=== PATIENT | female | born 1935 | race Two or more races ===

== ENCOUNTER 2016-10-25 02:10 | Observation (INO) | payer OTHER ==
--- NOTE | 2016-10-25 02:44 | PDOC ---
History of Present Illness - General History Source: Patient, Family, Spouse Exam Limitations: No Limitations - History of Present Illness Initial Comments: 10/25/16 04:16 The patient is a 81-year-old female, with a significant past medical history of schizophrenia, hypothyroidism, and borderline diabetes who presents to the emergency department complaining of syncope(X2) and lightheadedness that began approximately 5 hours ago. The patient reports she was sleeping when she began to feel abdominal discomfort, and got up to use the bathroom. Upon getting up she began to feel lightheaded and had difficulty walking. The patient reports a mechanical fall secondary to lightheaded symptoms. She states that her helped her get up, but she fell again. As per spouse, the patient did not have any head trauma or LOC.As per daughter, the patient has been taking a sleeping pill for the past 6 months, but today it is unclear whether or not she double dosed. The patient denies fever, chills, cough, or headache. She denies nausea, vomiting, diarrhea, and constipation. She denies dysuria frequency, urgency, and hematuria. Allergies: Penicillin Past Surgical History: None reported. Social History: Non-smoker. Denies alcohol or drug use. 10/25/16 04:34 <Geovanna Veras - Last Filed: 10/25/16 04:34> <Marita Gonzales - Last Filed: 10/25/16 07:01> - General Chief Complaint: Lightheaded Stated Complaint: SYNCOPE Time Seen by Provider: 10/25/16 02:31 Past History <Geovanna Veras - Last Filed: 10/25/16 04:34> - Past Medical History Diabetes: Yes (borderline diabetes) Psychiatric Problems: Yes (schizophrenia) Thyroid Disease: Yes (hypo) - Psycho/Social/Smoking Cessation Hx Suicidal Ideation: No Smoking History: Never smoked <Marita Gonzales - Last Filed: 10/25/16 07:01> - Past Medical History Allergies/Adverse Reactions: Allergies Allergy/AdvReac Type Severity Reaction Status Date / Time Penicillins Allergy Verified 10/25/16 02:17 Home Medications: Ambulatory Orders Atorvastatin Ca [Lipitor] 0 mg PO HS 10/25/16 Gabapentin 600 mg PO ASDIR 10/25/16 Levothyroxine Sodium [Levo-T] 0 mcg PO DAILY 10/25/16 Quetiapine Fumarate [Seroquel -] 0 mg PO HS 10/25/16 Review of Systems - Review of Systems Able to Perform ROS?: Yes Comments:: 10/25/16 04:16 GENERAL/CONSTITUTIONAL: No fever or chills. No weakness. HEAD, EYES, EARS, NOSE AND THROAT: No change in vision. No ear pain or discharge. No sore throat. CARDIOVASCULAR: No chest pain or shortness of breath. RESPIRATORY: No cough, wheezing, or hemoptysis. GASTROINTESTINAL: No nausea, vomiting, diarrhea or constipation. GENITOURINARY: No dysuria, frequency, or change in urination. MUSCULOSKELETAL: No joint or muscle swelling or pain. No neck or back pain. SKIN: No rash NEUROLOGIC: +Lightheadedness. No headache, vertigo, or change in strength/ sensation. ENDOCRINE: No increased thirst. No abnormal weight change. HEMATOLOGIC/LYMPHATIC: No anemia, easy bleeding, or history of blood clots. ALLERGIC/IMMUNOLOGIC: No hives or skin allergy. <Geovanna Veras - Last Filed: 10/25/16 04:34> *Physical Exam - Vital Signs Last Vital Signs Temp Pulse Resp BP Pulse Ox 78 18 150/65 98 10/25/16 02:20 10/25/16 02:20 10/25/16 02:20 10/25/16 02:20 - Physical Exam Comments: 10/25/16 04:17 GENERAL: The patient is awake, alert, and fully oriented, in no acute distress. HEAD: Normal with no signs of trauma. EYES: Pupils equal, round and reactive to light, extraoccular movements intact, sclera anticteric, conjunctiva clear with no pallor. ENT: Ears normal, nares patent, oropharynx clear without exudates. Moist mucous membranes. NECK: Normal range of motion, supple without lymphadenopathy, JVD, or masses. LUNGS: Breath sounds equal, clear to auscultation bilaterally. No wheeze/ crackles. HEART: Regular rate and rhythm, normal S1 and S2 without murmur or rub. ABDOMEN: Soft/nontender/nondistended. BS wnl. No guarding or rebound. No palpable masses. No hepatosplenomegaly. EXTREMITIES: Normal range of motion, no edema. No clubbing or cyanosis. No cords , erythema, or tenderness. NEUROLOGICAL: Cranial nerves II through XII grossly intact. No deficits to light touch and temperature in face, upper extremities and lower extremities. No motor deficits in the in face, upper extremities and lower extremities. Normoreflexic in the upper and lower extremities. Normal speech. Toes are down- going bilaterally. Gait is normal without ataxia. +Finger to nose test is off. Rhomberg sign is normal. Heel to toe test was normal bilaterally. PSYCH: +Schizophrenia. Normal mood, normal affect. SKIN: Warm, Dry, normal turgor, no rashes or lesions noted. <Geovanna Veras - Last Filed: 10/25/16 04:34> - Vital Signs Last Vital Signs Temp Pulse Resp BP Pulse Ox 78 18 150/65 98 10/25/16 02:20 10/25/16 02:20 10/25/16 02:20 10/25/16 02:20 <Marita Gonzales - Last Filed: 10/25/16 07:01> ED Treatment Course - LABORATORY CBC & Chemistry Diagram: 10/25/16 02:49 10/25/16 02:49 - ADDITIONAL ORDERS Additional order review: Laboratory Results 10/25/16 10/25/16 10/25/16 03:28 02:49 02:49 INR 1.17 H Sodium 143 Potassium 3.6 Chloride 104 Carbon Dioxide 28 Anion Gap 11 BUN 12 Creatinine 1.1 H Creat Clearance w eGFR 47.91 Random Glucose 171 H Calcium 9.3 Total Bilirubin 0.7 AST 24 ALT 24 Alkaline Phosphatase 125 H Creatine Kinase 254 H CK-MB (CK-2) 1.661 Troponin I < 0.02 Total Protein 6.7 Albumin 3.8 Triglycerides 89 Cholesterol 160 Total LDL Cholesterol 86 HDL Cholesterol 62 H Urine Color Ltyellow Urine Appearance Clear Urine pH 6.0 Ur Specific [place] 1.014 Urine Protein 1+ H Urine Glucose (UA) Negative Urine Ketones Negative Urine Blood Negative Urine Nitrite Negative Urine Bilirubin Negative Urine Urobilinogen Negative Ur Leukocyte Esterase 1+ H 10/25/16 02:49 RBC 4.01 MCV 90.4 MCHC 32.5 RDW 13.1 MPV 9.1 Neutrophils % 57.7 Lymphocytes % 34.4 Monocytes % 6.5 Eosinophils % 1.1 Basophils % 0.3 <Geovanna Veras - Last Filed: 10/25/16 04:34> - LABORATORY CBC & Chemistry Diagram: 10/25/16 02:49 10/25/16 02:49 <Marita Gonzales - Last Filed: 10/25/16 07:01> Medical Decision Making - Medical Decision Making 10/25/16 04:10 Patient Name: Yamilka Nance This is a preliminary report by imaging superintendent distribution Exam: Noncntrast CT head Images: 74 Clinical indication: Rule out cerebellar stroke. Findings: Multiple axial images were obtained of the brain without contrast. There is no mass-effect, midline shift or hemorrhage. There is no intra-axial or extra-axial fluid collection. Mineralization is noted in both basal ganglia. Atrophic involutional changes are noted and are mild for the patient's stated age. No cerebellar infarct identified. The visualized portions of the paranasal sinuses are clear. The middle ear cavities and mastoids are clear. Impression: No mass effect or intracranial hemorrhage. No cerebellar infarct identified. THIS DOCUMENT HAS BEEN ELECTRONICALLY SIGNED 10/25/16 06:57 Pt had 2 syncopal episode in the bathroom this early AM. She went to sleep with her around 9:30 and then woke up around 2am to go to the bathroom, but she was unsteady on her feet and she fell in the bathroom. He helped her up and she fell a second time. Pt comes to the ER iwth , daughter and grandchild. They tell me that she is schizophrenic and at baseline doesnt know the date and cannot answer some questions coherently. The tell me her PMD Dr. Garcia put her on sleeping pills 6 months ago and they think that she may have doubled up on her meds today by accident. Pt has a normal exam in the ER, except that her finger to nose exam is unsteady. SHe is otherwise able to ambulate to the bathroom in the ER and she has equal and good strength throughout. She is afebrile. The leukocytes in her urine may reflect that she had a BM on herself and the clean catch specimen is likely contaminated. Pt's head CT appears normal. Labs are normal and she will be admitted to the hospitalist for syncope and she will require a neuro consult. <Marita Gonzales - Last Filed: 10/25/16 07:01> *DC/Admit/Observation/Transfer - Attestations Scribe Attestion: 10/25/16 04:22 Documentation prepared by Geovanna Veras, acting as medical coder for Marita Gonzales MD. <Geovanna Veras - Last Filed: 10/25/16 04:34> - Discharge Dispostion Admit: Yes <Marita Gonzales - Last Filed: 10/25/16 07:01> Diagnosis at time of Disposition: Syncope and collapse - Referrals
[2016-10-25 02:45] VITALS: BMI 23.5
--- NOTE | 2016-10-25 02:45 | PDOC ---
NIH Stroke Scale - Last Known Well Date/Time & Onset Date Last Known Well: 10/24/16 Time Last Known Well: 21:30 - Initial Evaluation Level of consciousness: Alert Ask patient the month and their age: Both incorrect Ask patient to open & close eyes; make fist and let go: Obeys both correctly Best gaze (horizontal eye movement): Normal Visual field testing: No visual field loss Facial paresis (Show teeth/raise eyebrows/close eyes tight): Normal symmetrical movement Motor Function: Left Arm: Normal Motor Function: Right Arm: Normal (extends arm 90 (or 45) degrees for 10 seconds without drift Motor Function: Left Leg: Normal (extends leg 30 degrees for 5 seconds without drift) Motor Function: Right Leg: Normal (extends leg 30 degrees for 5 seconds without drift) Limb Ataxia: Present in two limbs Sensory(Use pinprick test arms,legs,trunk,face/side to side): Normal Best language (Describe picture, name items, read sentences): No Aphasia Dysarthria (read several words): Normal articulation Extinction and Inattention: No abnormality - Total Score NIH Stroke Scale Score: 4
[2016-10-25 03:00] LABS: BASOPHIL 0.3 % (0-2.0); EOSINOPHIL 1.1 % (0-4.5); MCH 29.4 pg (25.7-33.7); MCHC 32.5 g/dl (32.0-36.0); MEAN CELL VOLUME 90.4 fl (80-96); MEAN PLT VOLUME 9.1 fl (7.5-11.1); NEUTROPHILS 57.7 % (42.8-82.8); PLATELET COUNT 178 K/MM3 (134-434); RDW 13.1 % (11.6-15.6); WHITE BLOOD COUNT 6.6 K/mm3 (4.0-10.0)
[2016-10-25 03:18] LABS: INR 1.17 (0.82-1.09); PROTHROMBIN TIME (PATIENT) 12.9 SEC (9.98-11.88)
[2016-10-25 03:26] LABS: ALBUMIN 3.8 g/dl (3.4-5.0); ANION GAP 11 (8-16); BILIRUBIN,TOTAL 0.7 mg/dL (0.2-1.0); CALCIUM 9.3 mg/dL (8.5-10.1); CHOLESTEROL 160 mg/dL (50-200); CO2 28 mmol/L (21-32); CREATININE 1.1 mg/dL (0.55-1.02); GLUCOSE,RANDOM 171 mg/dL (74-106); SGOT/AST 24 U/L (15-37); SGPT/ALT 24 U/L (12-78); TOT PROT 6.7 g/dl (6.4-8.2)
[2016-10-25 03:29] LABS: ALK PHOS 125 U/L (45-117); TROPONIN I < 0.02 ng/ml (0.00-0.05)
[2016-10-25 03:35] LABS: URINE APPEARANCE CLEAR; URINE BILIRUBIN NEGATIVE (NEGATIVE); URINE BLOOD NEGATIVE (NEGATIVE); URINE COLOR LTYELLOW; URINE GLUCOSE (UA) NEGATIVE (NEGATIVE); URINE KETONE NEGATIVE (NEGATIVE); URINE LEUK ESTERASE 1+ (NEGATIVE); URINE NITRITE NEGATIVE (NEGATIVE); URINE PROTEIN 1+ (NEGATIVE); URINE UROBILINOGEN NEGATIVE E.U./dl (0.2-1.0)
[2016-10-25 03:42] LABS: URINE BACTERIA RARE /hpf (NONE SEEN); URINE MUCUS RARE; URINE RBC 5 /hpf (0-3); URINE WBC 10 /hpf (3-5)
[2016-10-25 03:46] LABS: LDL CHOLESTEROL (ONLY SJRH) 86 mg/dL (5-100)
--- NOTE | 2016-10-25 05:01 | HP ---
CHIEF COMPLAINT: Lightheadedness, Syncope PCP: HISTORY OF PRESENT ILLNESS: This is a 81 year old woman with a past medical history of: Schizophrenia, Hypothyroidism, Borderline DM. Who presents to the emergency department from home with lightheadedness, syncope x 0124. Patient's daughter reports her mom was found on the bathroom floor wedged between the tub and garbage bin. Per daughter patient was awake with slurred speech. Patient reports feeling lightheaded and weak. Patient reports being constipated for several days taking a laxative and her sleeping med around 8-9pm. She states" when I got up to go to the bathroom my legs felt weak." Patient denies headache, blurred vision or numbness, except for chronic numbness to her left foot. Patient denies fever, chills, SOB, CP, N/V/D, melena, hematuria, dysuria. ER course was notable for: (1) CT Brain- negative ICH, mass or lesion (2) EKG SB with T wave abnormality (3) Glucose 171 Recent Travel: None PAST MEDICAL HISTORY: See HPI PAST SURGICAL HISTORY: See HPI Social History: Smoking: None Alcohol: None Drugs: None Family History: Allergies Penicillins Allergy (Verified 10/25/16 02:17) HOME MEDICATIONS: Medication Instructions Recorded Atorvastatin Ca [Lipitor] 0 mg PO HS 10/25/16 Gabapentin 600 mg PO ASDIR 10/25/16 Levothyroxine Sodium [Levo-T] 0 mcg PO DAILY 10/25/16 Quetiapine Fumarate [Seroquel -] 0 mg PO HS 10/25/16 REVIEW OF SYSTEMS CONSTITUTIONAL: generalized weakness Absent: fever, chills, diaphoresis, malaise, loss of appetite, weight change HEENT: Absent: rhinorrhea, nasal congestion, throat pain, throat swelling, difficulty swallowing, mouth swelling, ear pain, eye pain, visual changes CARDIOVASCULAR: syncope, lightheadedness Absent: chest pain, syncope, palpitations, irregular heart rate, peripheral edema RESPIRATORY: Absent: cough, shortness of breath, dyspnea with exertion, orthopnea, wheezing, stridor, hemoptysis GASTROINTESTINAL: Absent: abdominal pain, abdominal distension, nausea, vomiting, diarrhea, constipation, melena, hematochezia GENITOURINARY: Absent: dysuria, frequency, urgency, hesitancy, hematuria, flank pain, genital pain MUSCULOSKELETAL: Absent: myalgia, arthralgia, joint swelling, back pain, neck pain SKIN: Absent: rash, itching, pallor HEMATOLOGIC/IMMUNOLOGIC: Absent: easy bleeding, easy bruising, lymphadenopathy, frequent infections ENDOCRINE: Absent: unexplained weight gain, unexplained weight loss, heat intolerance, cold intolerance NEUROLOGIC: dizziness, unsteady gait Absent: headache, focal weakness or paresthesias, dizziness, unsteady gait, seizure, mental status changes, bladder or bowel incontinence PSYCHIATRIC: Absent: anxiety, depression, suicidal or homicidal ideation, hallucinations. PHYSICAL EXAMINATION Vital Signs - 24 hr 10/25/16 02:20 Pulse Rate 78 Respiratory 18 Rate Blood Pressure 150/65 O2 Sat by Pulse 98 Oximetry (%) GENERAL: Awake, alert, and fully oriented, in no acute distress. HEAD: Normal with no signs of trauma. EYES: Pupils equal, round and reactive to light, extraocular movements intact, sclera anicteric, conjunctiva clear. No lid lag. EARS, NOSE, THROAT: Ears normal, nares patent, oropharynx clear without exudates. Dry mucous membranes. NECK: Normal range of motion, supple without lymphadenopathy, JVD, or masses. LUNGS: Breath sounds equal, clear to auscultation bilaterally. No wheezes, and no crackles. No accessory muscle use. HEART: Regular rate and rhythm, normal S1 and S2 without murmur, rub or gallop. ABDOMEN: Soft, nontender, not distended, normoactive bowel sounds, no guarding, no rebound, no masses. No hepatomegaly or splenomegaly. MUSCULOSKELETAL: Normal range of motion at all joints. No bony deformities or tenderness. No CVA tenderness. UPPER EXTREMITIES: 2+ pulses, warm, well-perfused. No cyanosis. No clubbing. Cap refill <2 seconds. No peripheral edema. LOWER EXTREMITIES: 2+ pulses, warm, well-perfused. No calf tenderness. No peripheral edema. NEUROLOGICAL: Cranial nerves II-XII intact. Normal speech. Gait not observed, Finger Nose Test +positive, mini- mental recall- 0 . PSYCHIATRIC: Cooperative. Good eye contact. Appropriate mood and affect. SKIN: Warm, dry, normal turgor, no rashes or lesions noted. Laboratory Results - last 24 hr 10/25/16 10/25/16 10/25/16 02:49 02:49 02:49 WBC 6.6 RBC 4.01 Hgb 11.8 Hct 36.2 MCV 90.4 MCHC 32.5 RDW 13.1 Plt Count 178 MPV 9.1 Neutrophils % 57.7 Lymphocytes % 34.4 Monocytes % 6.5 Eosinophils % 1.1 Basophils % 0.3 INR 1.17 H Sodium 143 Potassium 3.6 Chloride 104 Carbon Dioxide 28 Anion Gap 11 BUN 12 Creatinine 1.1 H Creat Clearance w eGFR 47.91 Random Glucose 171 H Calcium 9.3 Total Bilirubin 0.7 AST 24 ALT 24 Alkaline Phosphatase 125 H Creatine Kinase 254 H CK-MB (CK-2) 1.661 Troponin I < 0.02 Total Protein 6.7 Albumin 3.8 Triglycerides 89 Cholesterol 160 Total LDL Cholesterol 86 HDL Cholesterol 62 H Urine Color Urine Appearance Urine pH Ur Specific [place] Urine Protein Urine Glucose (UA) Urine Ketones Urine Blood Urine Nitrite Urine Bilirubin Urine Urobilinogen Ur Leukocyte Esterase Blood Type Antibody Screen 10/25/16 10/25/16 02:49 03:28 WBC RBC Hgb Hct MCV MCHC RDW Plt Count MPV Neutrophils % Lymphocytes % Monocytes % Eosinophils % Basophils % INR Sodium Potassium Chloride Carbon Dioxide Anion Gap BUN Creatinine Creat Clearance w eGFR Random Glucose Calcium Total Bilirubin AST ALT Alkaline Phosphatase Creatine Kinase CK-MB (CK-2) Troponin I Total Protein Albumin Triglycerides Cholesterol Total LDL Cholesterol HDL Cholesterol Urine Color Ltyellow Urine Appearance Clear Urine pH 6.0 Ur Specific [place] 1.014 Urine Protein 1+ H Urine Glucose (UA) Negative Urine Ketones Negative Urine Blood Negative Urine Nitrite Negative Urine Bilirubin Negative Urine Urobilinogen Negative Ur Leukocyte Esterase 1+ H Blood Type O POSITIVE Antibody Screen Negative Head CT 10/25/16 04:10 Patient Name: Yamilka Nance This is a preliminary report by imaging monotypist Exam: Noncntrast CT head Images: 74 Clinical indication: Rule out cerebellar stroke. Findings: Multiple axial images were obtained of the brain without contrast. There is no mass-effect, midline shift or hemorrhage. There is no intra-axial or extra-axial fluid collection. Mineralization is noted in both basal ganglia. Atrophic involutional changes are noted and are mild for the patient's stated age. No cerebellar infarct identified. The visualized portions of the paranasal sinuses are clear. The middle ear cavities and mastoids are clear. Impression: No mass effect or intracranial hemorrhage. No cerebellar infarct identified. ASSESSMENT/PLAN: This is a 81 year old woman with a PMHx of: Schizophrenia, Hypothyroidism, Border-line DM. Who presents to the ED with Lightheadedness, Syncope x am. Placed on Tele Observation for Syncope Plan: 1. Syncope - Likely secondary to orthostatic hypotension vs arrythmia vs CVA/TIA - Cardiac Monitoring - Echo in am check wall motion - Carotid Doppler in am r/o stenosis - Trop I neg x1 - Trend Trop I x2 - EKG reviewed 2. r/o CVA/TIA - Continue Cardiac monitoring - CT Brain- neg ICH mass or lesions - Appreciate Neurology Consult - Swallow Eval - [facility] Discharge - RD eval - HgbA1c in am - TSH - HOB 30 - Fall Precautions 3. Border-line DM - sub optimal - HgbA1c in am - BGMs - ISS - Monitor renal function - Consider RD consult 4. Schizophrenia - Continue home med - Will need to verify home med with pt's home pharmacy - f/u with Psych outpatient 5. F/E/N - NS@42ml/hr - Replete lytes prn - NPO 6. DVT/PPI - OOB - SCDs - Consider AC if LOS > 48hrs Code Status: Patient is a Full Code Visit type - Emergency Visit Emergency Visit: Yes ED Registration Date: 10/25/16 Care time: The patient presented to the Emergency Department on the above date and was hospitalized for further evaluation of their emergent condition. - New Patient This patient is new to me today: Yes Date on this admission: 10/25/16 - Critical Care Critical Care patient: No
[2016-10-25] MEDS: SODIUM CHLORIDE 1,000 ML IV SCH (05:08)
--- NOTE | 2016-10-25 11:22 | PN ---
Teaching Attending Note Name of Resident: Brad Darden ATTENDING PHYSICIAN STATEMENT I saw and evaluated the patient. I reviewed the resident's note and discussed the case with the resident. I agree with the resident's findings and plan as documented. SUBJECTIVE: Patient is feeling better, further questioning the patient stated that she was constipated and taken Dulcolax for constipation and after tried to get up to go to the bathroom ,felt dizzy and felt the whole room spinning around and tried to hold on to the wall and bruised her elbow meanwhile her catches her. OBJECTIVE: Vital Signs Temperature Pulse Rate 62 10/25/16 07:39 Respiratory Rate 18 10/25/16 07:39 Blood Pressure 112/60 10/25/16 07:39 O2 Sat by Pulse Oximetry (%) 100 10/25/16 07:39 GENERAL: Awake, alert, and fully oriented, in no acute distress. HEAD: Normal with no signs of trauma. EYES: Pupils equal, round and reactive to light, extraocular movements intact, sclera anicteric, conjunctiva clear. EARS, NOSE, THROAT: Ears normal, oropharynx clear without exudates. Dry mucous membranes. NECK: Normal range of motion, supple without lymphadenopathy, JVD, or masses. LUNGS: Breath sounds equal, clear to auscultation bilaterally. No wheezes, and no crackles. No accessory muscle use. HEART: Regular rate and rhythm, normal S1 and S2 without murmur, rub or gallop. ABDOMEN: Soft, nontender, not distended, normoactive bowel sounds, no guarding, no rebound, no masses. MUSCULOSKELETAL: Normal range of motion at all joints. No bony deformities or tenderness. No CVA tenderness. EXTREMITIES: 2+ pulses, warm, well-perfused. No calf tenderness. No peripheral edema. NEUROLOGICAL: Cranial nerves II-XII intact. Normal speech. Gait not observed, PSYCHIATRIC: Cooperative. Good eye contact. Appropriate mood and affect. SKIN: Warm, dry, normal turgor, no rashes or lesions noted. CBCD WBC 6.6 K/mm3 (4.0-10.0) 10/25/16 02:49 RBC 4.01 M/mm3 (3.60-5.2) 10/25/16 02:49 Hgb 11.8 GM/dL (10.7-15.3) 10/25/16 02:49 Hct 36.2 % (32.4-45.2) 10/25/16 02:49 MCV 90.4 fl (80-96) 10/25/16 02:49 MCHC 32.5 g/dl (32.0-36.0) 10/25/16 02:49 RDW 13.1 % (11.6-15.6) 10/25/16 02:49 Plt Count 178 K/MM3 (134-434) 10/25/16 02:49 MPV 9.1 fl (7.5-11.1) 10/25/16 02:49 CMP Sodium 143 mmol/L (136-145) 10/25/16 02:49 Potassium 3.6 mmol/L (3.5-5.1) 10/25/16 02:49 Chloride 104 mmol/L (98-107) 10/25/16 02:49 Carbon Dioxide 28 mmol/L (21-32) 10/25/16 02:49 Anion Gap 11 (8-16) 10/25/16 02:49 BUN 12 mg/dL (7-18) 10/25/16 02:49 Creatinine 1.1 mg/dL (0.55-1.02) H 10/25/16 02:49 Creat Clearance w eGFR 47.91 (>60) 10/25/16 02:49 Random Glucose 171 mg/dL (74-106) H 10/25/16 02:49 Calcium 9.3 mg/dL (8.5-10.1) 10/25/16 02:49 Total Bilirubin 0.7 mg/dL (0.2-1.0) 10/25/16 02:49 AST 24 U/L (15-37) 10/25/16 02:49 ALT 24 U/L (12-78) 10/25/16 02:49 Alkaline Phosphatase 125 U/L (45-117) H 10/25/16 02:49 Total Protein 6.7 g/dl (6.4-8.2) 10/25/16 02:49 Albumin 3.8 g/dl (3.4-5.0) 10/25/16 02:49 CARDIAC ENZYMES Creatine Kinase 254 IU/L (26-192) H 10/25/16 02:49 Troponin I < 0.02 ng/ml (0.00-0.05) 10/25/16 02:49 Current Medications Generic Name Dose Route Start Last Admin Trade Name Ealr PRN Reason Stop Dose Admin Sodium Chloride 1,000 mls @ 42 mls/hr 10/25/16 02:45 10/25/16 05:08 Normal Saline - IV 42 mls/hr ASDIR WALE Administration Current Medications Generic Name Dose Route Start Last Admin Trade Name Earl PRN Reason Stop Dose Admin Atorvastatin Calcium 10 mg 10/25/16 22:00 Lipitor - PO HS WALE Atorvastatin Calcium 10 mg 10/25/16 22:00 Lipitor - PO HS WALE Gabapentin 400 mg 10/26/16 10:00 Neurontin - PO DAILY WALE Sodium Chloride 1,000 mls @ 42 mls/hr 10/25/16 02:45 10/25/16 05:08 Normal Saline - IV 42 mls/hr ASDIR WALE Administration Levothyroxine Sodium 75 mcg 10/26/16 07:00 Synthroid - PO DAILY@0700 WALE Levothyroxine Sodium 88 mcg 10/25/16 17:00 Synthroid - PO DAILY WALE Non-Formulary Medication 400 mg 10/25/16 17:00 Gabapentin [Gabapentin] PO ASDIR WALE ASSESSMENT AND PLAN: This is a 81 year old woman with a PMHx of: Schizophrenia, Hypothyroidism, Border-line DM. Who presents to the ED with Lightheadedness without LOC as per patient. # acute lightheadedness possible due to laxative use (Dulcolax) , check orthostatic hypotension, IVF continue Cardiac Monitoring; Echo in am check wall motion , Carotid Doppler in am r/o stenosis , Trop I neg x2 EKG reviewed # Border-line DM , HgbA1c 6.0 , diabetic diet control , possibel due to seroquel , will monitor # bruising of the right elbow and right hip xray or right elbow and right hip ordered Code Status: Patient is a Full Code Observation in tele duplex and echo are pending
--- NOTE | 2016-10-25 12:05 | PN ---
Physical Exam: SUBJECTIVE: Patient seen and examined Py is awake, alert oriented to time place and person Pt is midly fortgetful NO chest pain, palpitation, no n/v no dizziness or lightheadnesss no dysuria no hematuria C/o constipation OBJECTIVE: Vital Signs Period Temp Pulse Resp BP Sys/Guy Pulse Ox Last 24 Hr 59-68 16-18 112-131/58-66 99-100 GENERAL: The patient is awake, alert, and fully oriented, in no acute distress. HEAD: Normal with no signs of trauma. EYES: PERRL, extraocular movements intact, sclera anicteric, conjunctiva clear. No ptosis. ENT: Ears normal, nares patent, oropharynx clear without exudates, moist mucous membranes. NECK: Trachea midline, full range of motion, supple. LUNGS: Breath sounds equal, clear to auscultation bilaterally, no wheezes, no crackles, no accessory muscle use. HEART: Regular rate and rhythm, S1, S2 without murmur, rub or gallop. ABDOMEN: Soft, nontender, nondistended, normoactive bowel sounds, no guarding, no rebound, no hepatosplenomegaly, no masses. EXTREMITIES: 2+ pulses, warm, well-perfused, no edema. NEUROLOGICAL: Cranial nerves II through XII grossly intact. Normal speech, gait not observed. Strength 5/5 equal in all ext. Normal sensation in all ext equal, Brachial and patellar reflex 2+. slight difficulty in rapid alternating movement. PSYCH: Normal mood, normal affect. SKIN: Warm, dry, normal turgor, no rashes or lesions noted Laboratory Results - last 24 hr 10/25/16 09:00 Hemoglobin A1c % 6.0 Active Medications Generic Name Dose Route Start Last Admin Trade Name Freq PRN Reason Stop Dose Admin Sodium Chloride 1,000 mls @ 42 mls/hr 10/25/16 02:45 10/25/16 05:08 Normal Saline - IV 42 mls/hr ASDIR WALE Administration CBC, BMP 10/25/16 02:49 10/25/16 02:49 Laboratory Tests 10/25/16 03:28 Ur Leukocyte Esterase 1+ H Urine WBC 10 CT head 10/24/16: Mild volume loss and ventricular dilatation without gross evidence of acute intracranial pathology. Correlate clinically to determine further evaluation and follow-up. US carotid 1/8/17: Small plaques at the common carotid bifurcation/bulb, bilaterally without evidence of hemodynamically significant stenosis . CXR: 10/25/16 Right shoulder deformity. Weak inspiration. No acute chest pathology. ASSESSMENT/PLAN: This is a 81 year old female with a PMH of Schizophrenia, Hypothyroidism, Prediabetes with constipation in recent days taking laxatives presents to the ED after being found in the bathroom floor awake, slurred speech, she states that she walk to the bathroom and her leg were weak. Pt is placed on observation in telemetry for syncope r/o orthostatic hypotension, arrhythmia, CVA/TIA Unwitnessed fall likely syncope r/o orthostatic, hypotension, arrhythmia, cardiac, CVA/TIA etiology cardiac monitoring CT head showed no acute disease Echocardiogram pending US carotid showed no significant stenosis Tropnonins neg times 2 TSH 2.5 Neuro consult swallow eval Fall precaution Constipation Started on Colace 100mg PO TID Prediabetes BS 171 this HgbA1c 6 BGM ACHS Outpatient monitoring Hypothyroidism TSh 2.5 ON synthroid 75mcg PO QD H/o Schizophrenia Continue home med Pt was on Seroquel at night family will update us with dosage Outpatient pyc follow up FEN Fluid: none Electrolytes: no abdnormalities Nutrition: Cardiac diet/diabetic diet DVT prophylaxis: heparin SQ Disposition: consider discharge in am if echo negative, no event on monitor, and ok with neuroologist. Visit type - Emergency Visit Emergency Visit: Yes ED Registration Date: 10/25/16 Care time: The patient presented to the Emergency Department on the above date and was hospitalized for further evaluation of their emergent condition. - New Patient This patient is new to me today: Yes Date on this admission: 10/25/16 - Critical Care Critical Care patient: No
[2016-10-25 12:23] LABS: MAGNESIUM 2.4 mg/dL (1.8-2.4); PHOSPHOROUS 3.5 mg/dL (2.5-4.9)
[2016-10-25 12:29] LABS: TROPONIN I < 0.02 ng/ml (0.00-0.05)
[2016-10-25] MEDS ORDERED: LEVOTHYROXINE NA 75 MCG TABLET (FP) PO ONE (14:24)
[2016-10-25] MEDS ORDERED: LEVOTHYROXINE NA 25 MCG TABLET (FP) ONE (14:47)
[2016-10-25] MEDS ORDERED: LEVOTHYROXINE NA 88 MCG TABLET (FP) PO SCH (17:00)
[2016-10-25] MEDS ORDERED: HEMOQUE TEST 1 EACH EACH ONE (17:02)
[2016-10-25] MEDS ORDERED: ATORVASTATIN CA 10 MG TABLET (FP) PO SCH (22:00)
--- NOTE | 2016-10-25 23:53 | EKG ---
Test Reason : Blood Pressure : / mmHG Vent. Rate : 057 BPM Atrial Rate : 057 BPM P-R Int : 180 ms QRS Dur : 098 ms QT Int : 390 ms P-R-T Axes : 066 041 012 degrees QTc Int : 379 ms SINUS BRADYCARDIA NONSPECIFIC T WAVE ABNORMALITY ABNORMAL ECG NO PREVIOUS ECGS AVAILABLE Confirmed by JUNI GUADARRAMA MD ([id number]) on 10/25/2016 11:53:04 PM Referred By: Confirmed By:JUNI GUADARRAMA MD
[2016-10-26] MEDS: SODIUM CHLORIDE 1,000 ML IV SCH (06:34)
[2016-10-26] MEDS ORDERED: LEVOTHYROXINE NA 75 MCG TABLET (FP) PO SCH (07:00)
--- NOTE | 2016-10-26 07:41 | PN ---
Physical Exam: SUBJECTIVE: Patient seen and examined OBJECTIVE: Vital Signs Period Temp Pulse Resp BP Sys/Guy Pulse Ox Last 24 Hr 98 F-98.5 F 61-70 18-18 115-143/57-81 96-100 GENERAL: The patient is awake, alert, and fully oriented, in no acute distress. HEAD: Normal with no signs of trauma. EYES: PERRL, extraocular movements intact, sclera anicteric, conjunctiva clear. No ptosis. ENT: Ears normal, nares patent, oropharynx clear without exudates, moist mucous membranes. NECK: Trachea midline, full range of motion, supple. LUNGS: Breath sounds equal, clear to auscultation bilaterally, no wheezes, no crackles, no accessory muscle use. HEART: Regular rate and rhythm, S1, S2 without murmur, rub or gallop. ABDOMEN: Soft, nontender, nondistended, normoactive bowel sounds, no guarding, no rebound, no hepatosplenomegaly, no masses. EXTREMITIES: 2+ pulses, warm, well-perfused, no edema. NEUROLOGICAL: Cranial nerves II through XII grossly intact. Normal speech, gait not observed. Strength 5/5 equal in all ext. Normal sensation in all ext equal, Brachial and patellar reflex 2+. slight difficulty in rapid alternating movement. PSYCH: Normal mood, normal affect. SKIN: Warm, dry, normal turgor, no rashes or lesions noted Laboratory Results - last 24 hr 10/25/16 10/25/16 10/25/16 09:00 11:36 13:44 POC Glucometer Hemoglobin A1c % 6.0 Phosphorus 3.5 Magnesium 2.4 Troponin I < 0.02 TSH 2.50 Free T4 0.84 10/25/16 10/25/16 17:20 17:20 POC Glucometer [phone] Hemoglobin A1c % Phosphorus Magnesium Troponin I < 0.02 TSH Free T4 Active Medications Generic Name Dose Route Start Last Admin Trade Name Freq PRN Reason Stop Dose Admin Atorvastatin Calcium 10 mg 10/25/16 22:00 10/26/16 01:27 Lipitor - PO 10 mg HS WALE Administration Gabapentin 400 mg 10/26/16 10:00 Neurontin - PO DAILY WALE Sodium Chloride 1,000 mls @ 42 mls/hr 10/25/16 02:45 10/26/16 06:34 Normal Saline - IV 42 mls/hr ASDIR WALE Administration Influenza Virus Vaccine 45 mcg 10/26/16 09:00 Fluvirin IM 10/26/16 09:01 .ONCE ONE Levothyroxine Sodium 75 mcg 10/26/16 07:00 10/26/16 06:35 Synthroid - PO 75 mcg DAILY@0700 [facility] Administration Pneumococcal 13-Valent Conj Vacc 0.5 ml 10/26/16 09:00 Prevnar 13 Syringe - IM 10/26/16 09:01 .ONCE ONE CBC, BMP 10/25/16 02:49 10/25/16 02:49 Laboratory Tests 10/25/16 10/25/16 10/25/16 02:49 02:49 11:36 INR 1.17 H Phosphorus 3.5 Magnesium 2.4 Troponin I < 0.02 < 0.02 Total LDL Cholesterol 86 HDL Cholesterol 62 H TSH 2.50 Free T4 10/25/16 10/25/16 13:44 17:20 INR Phosphorus Magnesium Troponin I < 0.02 Total LDL Cholesterol HDL Cholesterol TSH Free T4 0.84 CT head 10/24/16: Mild volume loss and ventricular dilatation without gross evidence of acute intracranial pathology. Correlate clinically to determine further evaluation and follow-up. US carotid 10/25/16: Small plaques at the common carotid bifurcation/bulb, bilaterally without evidence of hemodynamically significant stenosis . CXR: 10/25/16 Right shoulder deformity. Weak inspiration. No acute chest pathology. ASSESSMENT/PLAN: This is a 81 year old female with a PMH of Schizophrenia, Hypothyroidism, Prediabetes with constipation in recent days taking laxatives presents to the ED after being found in the bathroom floor awake, slurred speech, she states that she walk to the bathroom and her leg were weak. Pt is placed on observation in telemetry for syncope r/o orthostatic hypotension, arrhythmia, CVA/TIA Unwitnessed fall likely syncope r/o orthostatic, hypotension, arrhythmia, cardiac, CVA/TIA etiology cardiac monitoring CT head showed no acute disease Echocardiogram pending US carotid showed no significant stenosis Tropnonins neg times 3 TSH 2.5 Neuro consult, pending eval swallow eval Fall precaution Xray Hip/pelvis Xray right elbow Constipation on Colace 100mg PO TID Prediabetes HgbA1c 6 BGM ACHS Outpatient monitoring Hypothyroidism TSh 2.5 ON synthroid 75mcg PO QD H/o Schizophrenia Continue home med Pt was on Seroquel at night family will update us with dosage Outpatient pyshc follow up FEN Fluid: none Electrolytes: no abnormalities Nutrition: Cardiac diet/diabetic diet DVT prophylaxis: heparin SQ Disposition: consider discharge in am if echo negative, no event on monitor, and ok with neuroologist.
[2016-10-26] MEDS ORDERED: INFLUENZA VACCINE 45 MCG/0.5 ML (MDV 16-17) IM ONE (09:00)
[2016-10-26] MEDS ORDERED: PNEUMOC 13-VAL CONJ-DIP CRM/PF 0.5 ML DISP.SYRIN IM ONE (09:00)
[2016-10-26 09:01] LABS: BASOPHIL 0.6 % (0-2.0); EOSINOPHIL 1.5 % (0-4.5); MCH 30.3 pg (25.7-33.7); MCHC 33.7 g/dl (32.0-36.0); MEAN CELL VOLUME 89.9 fl (80-96); MEAN PLT VOLUME 9.1 fl (7.5-11.1); PLATELET COUNT 188 K/MM3 (134-434); RDW 13.3 % (11.6-15.6); WHITE BLOOD COUNT 4.2 K/mm3 (4.0-10.0)
[2016-10-26 09:20] LABS: CALCIUM 8.8 mg/dL (8.5-10.1); CREATININE 0.9 mg/dL (0.55-1.02)
[2016-10-26] MEDS ORDERED: ASPIRIN COATED 81 MG TABLET.EC PO SCH (11:00)
--- NOTE | 2016-10-26 11:06 | CONSULT ---
Admitting History and Physical - Primary Care Physician PCP: Yaritza Chun - Admission History of Present Illness: Per EMR: "HISTORY OF PRESENT ILLNESS: This is a 81 year old woman with a past medical history of: Schizophrenia, Hypothyroidism, Borderline DM. Who presents to the emergency department from home with lightheadedness, syncope x 0124. Patient's daughter reports her mom was found on the bathroom floor wedged between the tub and garbage bin. Per daughter patient was awake with slurred speech. Patient reports feeling lightheaded and weak. Patient reports being constipated for several days taking a laxative and her sleeping med around 8-9pm. She states" when I got up to go to the bathroom my legs felt weak." Patient denies headache, blurred vision or numbness, except for chronic numbness to her left foot. Patient denies fever, chills, SOB, CP, N/V/D, melena, hematuria, dysuria. ER course was notable for: (1) CT Brain- negative ICH, mass or lesion (2) EKG SB with T wave abnormality (3) Glucose 171" History Source: Patient Limitations to Obtaining History: No Limitations - Smoking History Smoking history: Never smoked - Alcohol/Substance Use Hx Alcohol Use: No History - Admission Reason For Visit: SYNCOPE AND COLLAPSE - Diagnostics X-ray: Report Reviewed CT Scan: Report Reviewed - General Mental Status: Alert and Oriented, Awake and Alert, Able to Follow Commands Attention: Intact Ability to Follow Directions: Good Head/Neck Control: WFL - Hearing Hearing: Normal Speech Evaluation - Communication Primary Language: [place] Communication: Yes: Within Normal Limits Oral Expression Ability: Yes: No Impairment - Speech Production Able to Make Needs Known: Yes: WNL Intelligibility: Yes: WNL - Speech Characteristics Voice Loudness: Normal Voice Pitch: Yes: Normal Voice Phonatory-based Quality: Yes: Normal Speech Pattern: Normal Nasal Resonance: Normal Articulation: Yes: Precise Rate of Speech: Intact - Language/Auditory Comprehension Follows: Yes: 2 Stage Simple Commands Observation: Able to respond to yes/no queries: Yes, Yes/No Confusion: No, Comprehends Conversational Speech: Yes - Language/Verbal Expression Able to Respond to Simple Queries: Yes: WNL Able to Communicate Wants and Needs: Yes: WNL Functional Communication Status: Yes: WNL - Swallow Evaluation/Bedside Assessment Current Nutritional Intake: Soft Oral Secretions: Yes: WFL Dentition: Yes: Adequate Facial Symmetry at Rest: Symmetrical Facial Symmetry on Retraction: Symmetrical Facial Movement: Controlled Sensation: Normal Against Resistance Opening: Normal Against Resistance Closing: Normal Pucker Lips: Normal Smile: Normal Lingual Movement: Normal Lingual Speed of Movement: Normal Lingual Movement Strgth Against Opposition: Normal Lingual Movement Characteristics: Normal Velopharyngeal Movement: Normal Laryngeal Elevation: WFL Laryngeal Movement: Able to Palpate Rate of Intake: WFL Bolus Size: WFL Labial Seal: WFL Chewing: WFL Oral Prep Time: WFL A-P Transit: WFL Pocketing: None Timing of Swallow: WFL Coughing/Throat Clear: No Change in Voice: No Recommendations - Speech Evaluation, Impression/Plan Impression: Speech,swallow, cognition, language apparently back to baseline. - Dysphagia Impressions/Plan Swallowing Skills: WF Dysphagia Impressions: No Impairment *Silent aspiration: cannot be R/O at bedside - Recommendations Diet Consistency: Regular Medication Administration: Whole with water Liquids: Thin Liquids
--- NOTE | 2016-10-26 12:08 | CONSULT ---
Consult - text type - Consultation Consultation Note: Neurology The patient is a 81-year-old female, with a significant past medical history of schizophrenia, hypothyroidism, and borderline diabetes who presented to the emergency department complaining of syncope(X2) and lightheadedness. The patient reports she was sleeping when she began to feel abdominal discomfort, and got up to use the bathroom. Upon getting up she began to feel lightheaded and had difficulty walking. The patient reports a mechanical fall secondary to lightheaded symptoms. She states that her helped her get up, but she fell again. She completed CT head in the ER and did not have acute changes. She is not on ASA though was advised to take it in the past. I discussed with her the benefit and recommended she take a daily 81mg ASA. Will obtain MRI brain to rule out CVA that can be missed on CT. Past History - Past Medical History Diabetes: Yes (borderline diabetes) Psychiatric Problems: Yes (schizophrenia) Thyroid Disease: Yes (hypo) - Psycho/Social/Smoking Cessation Hx Suicidal Ideation: No Smoking History: Never smoked - Past Medical History Allergies/Adverse Reactions: Allergies Allergy/AdvReac Type Severity Reaction Status Date / Time Penicillins Allergy Verified 10/25/16 02:17 Active Medications Aspirin (Ecotrin -) [address] [facility] Atorvastatin Calcium (Lipitor -) [address] [facility] Last Admin: 10/26/16 01:27 Dose: 10 mg Gabapentin (Neurontin -) [address] [facility] Last Admin: 10/26/16 09:15 Dose: 400 mg Sodium Chloride (Normal Saline -) 1,000 mls @ 42 mls/hr IV ASDIR [facility] Last Admin: 10/26/16 06:34 Dose: 42 mls/hr Levothyroxine Sodium (Synthroid -) 75 mcg PO DAILY@0700 [facility] Last Admin: 10/26/16 06:35 Dose: 75 mcg Review of Systems GENERAL/CONSTITUTIONAL: No fever or chills. No weakness. HEAD, EYES, EARS, NOSE AND THROAT: No change in vision. No ear pain or discharge. No sore throat. CARDIOVASCULAR: No chest pain or shortness of breath. RESPIRATORY: No cough, wheezing, or hemoptysis. GASTROINTESTINAL: No nausea, vomiting, diarrhea or constipation. GENITOURINARY: No dysuria, frequency, or change in urination. MUSCULOSKELETAL: No joint or muscle swelling or pain. No neck or back pain. SKIN: No rash NEUROLOGIC: +Lightheadedness. No headache, vertigo, or change in strength/ sensation. ENDOCRINE: No increased thirst. No abnormal weight change. HEMATOLOGIC/LYMPHATIC: No anemia, easy bleeding, or history of blood clots. ALLERGIC/IMMUNOLOGIC: No hives or skin allergy. *Physical Exam Vital Signs Period Temp Pulse Resp BP Sys/Guy Pulse Ox Last 24 Hr 98 F-98.5 F 61-78 18-18 115-143/51-81 96-100 GENERAL: The patient is awake, alert, and fully oriented, in no acute distress. HEAD: Normal with no signs of trauma. EYES: Pupils equal, round and reactive to light, extraoccular movements intact, sclera anticteric, conjunctiva clear with no pallor. ENT: Ears normal, nares patent, oropharynx clear without exudates. Moist mucous membranes. NECK: Normal range of motion, supple without lymphadenopathy, JVD, or masses. LUNGS: Breath sounds equal, clear to auscultation bilaterally. No wheeze/ crackles. HEART: Regular rate and rhythm, normal S1 and S2 without murmur or rub. ABDOMEN: Soft/nontender/nondistended. BS wnl. No guarding or rebound. No palpable masses. No hepatosplenomegaly. EXTREMITIES: Normal range of motion, no edema. No clubbing or cyanosis. No cords , erythema, or tenderness. NEUROLOGICAL: Cranial nerves II through XII grossly intact. No deficits to light touch and temperature in face, upper extremities and lower extremities. No motor deficits in the in face, upper extremities and lower extremities. Normoreflexic in the upper and lower extremities. Normal speech. Toes are down- going bilaterally. Gait is normal without ataxia. +Finger to nose test is off. Rhomberg sign is normal. Heel to toe test was normal bilaterally. PSYCH: +Schizophrenia. Normal mood, normal affect. SKIN: Warm, Dry, normal turgor, no rashes or lesions noted. Laboratory Results 10/25/16 10/25/16 10/25/16 03:28 02:49 02:49 INR 1.17 H Sodium 143 Potassium 3.6 Chloride 104 Carbon Dioxide 28 Anion Gap 11 BUN 12 Creatinine 1.1 H Creat Clearance w eGFR 47.91 Random Glucose 171 H Calcium 9.3 Total Bilirubin 0.7 AST 24 ALT 24 Alkaline Phosphatase 125 H Creatine Kinase 254 H CK-MB (CK-2) 1.661 Troponin I < 0.02 Total Protein 6.7 Albumin 3.8 Triglycerides 89 Cholesterol 160 Total LDL Cholesterol 86 HDL Cholesterol 62 H Urine Color Ltyellow Urine Appearance Clear Urine pH 6.0 Ur Specific [place] 1.014 Urine Protein 1+ H Urine Glucose (UA) Negative Urine Ketones Negative Urine Blood Negative Urine Nitrite Negative Urine Bilirubin Negative Urine Urobilinogen Negative Ur Leukocyte Esterase 1+ H 10/25/16 02:49 RBC 4.01 MCV 90.4 MCHC 32.5 RDW 13.1 MPV 9.1 Neutrophils % 57.7 Lymphocytes % 34.4 Monocytes % 6.5 Eosinophils % 1.1 Basophils % 0.3 Radiology Exam: Noncntrast CT head Images: 74 Clinical indication: Rule out cerebellar stroke. Findings: Multiple axial images were obtained of the brain without contrast. There is no mass-effect, midline shift or hemorrhage. There is no intra-axial or extra-axial fluid collection. Mineralization is noted in both basal ganglia. Atrophic involutional changes are noted and are mild for the patient's stated age. No cerebellar infarct identified. The visualized portions of the paranasal sinuses are clear. The middle ear cavities and mastoids are clear. Impression: No mass effect or intracranial hemorrhage. No cerebellar infarct identified. Plan 81-year-old female, with a significant past medical history of schizophrenia, hypothyroidism, and borderline diabetes who presented to the emergency department complaining of syncope(X2) and lightheadedness. Completed CT head in the ER and did not have acute changes. She is not on ASA though was advised to take it in the past. I discussed with her the benefit and recommended she take a daily 81mg ASA. On Lipitor 10mg DVT prevention, is ambulating without difficulty Fall precautions discussed Will obtain MRI brain to rule out CVA that can be missed on CT Cardiology evaluation, CD, Echo Glycemic control recommended, monitor glucose
--- NOTE | 2016-10-26 15:23 | DS ---
Physical Exam: SUBJECTIVE: Patient seen and examined Pt is feeling , no s/s of acute distress. NO weakness, no numbness or tinging No dizziness or confusion No blurred vision or double no n/v OBJECTIVE: Vital Signs Period Temp Pulse Resp BP Sys/Guy Pulse Ox Last 24 Hr 98 F-98.5 F 61-78 18-18 115-143/51-81 96-100 PHYSICAL EXAM GENERAL: The patient is awake, alert, and fully oriented, in no acute distress. HEAD: Normal with no signs of trauma. EYES: PERRL, extraocular movements intact, sclera anicteric, conjunctiva clear. No ptosis. ENT: Ears normal, nares patent, oropharynx clear without exudates, moist mucous membranes. NECK: Trachea midline, full range of motion, supple. LUNGS: Breath sounds equal, clear to auscultation bilaterally, no wheezes, no crackles, no accessory muscle use. HEART: Regular rate and rhythm, S1, S2 without murmur, rub or gallop. ABDOMEN: Soft, nontender, nondistended, normoactive bowel sounds, no guarding, no rebound, no hepatosplenomegaly, no masses. EXTREMITIES: 2+ pulses, warm, well-perfused, no edema. NEUROLOGICAL: Cranial nerves II through XII grossly intact. Normal speech, gait not observed. Strength 5/5 equal in all ext. Normal sensation in all ext equal, Brachial and patellar reflex 2+. PSYCH: Normal mood, normal affect. SKIN: Warm, dry, normal turgor, no rashes or lesions noted LABS Laboratory Results - last 24 hr 10/25/16 10/25/16 10/26/16 17:20 17:20 08:45 WBC 4.2 D RBC 4.18 Hgb 12.7 Hct 37.6 MCV 89.9 MCHC 33.7 RDW 13.3 Plt Count 188 MPV 9.1 Neutrophils % 44.0 D Lymphocytes % 47.1 H D Monocytes % 6.8 Eosinophils % 1.5 Basophils % 0.6 Sodium Potassium Chloride Carbon Dioxide Anion Gap BUN Creatinine POC Glucometer [id number] Random Glucose Calcium Troponin I < 0.02 10/26/16 08:45 WBC RBC Hgb Hct MCV MCHC RDW Plt Count MPV Neutrophils % Lymphocytes % Monocytes % Eosinophils % Basophils % Sodium 140 Potassium 3.7 Chloride 106 Carbon Dioxide 29 Anion Gap 5 L BUN 12 Creatinine 0.9 POC Glucometer Random Glucose 88 D Calcium 8.8 Troponin I CBC, BMP 10/26/16 08:45 10/26/16 08:45 Laboratory Tests 10/25/16 10/25/16 10/25/16 02:49 02:49 11:36 INR 1.17 H Calcium Phosphorus 3.5 Magnesium 2.4 Troponin I < 0.02 < 0.02 Albumin 3.8 Total LDL Cholesterol 86 HDL Cholesterol 62 H TSH 2.50 Free T4 10/25/16 10/25/16 10/26/16 13:44 17:20 08:45 INR Calcium 8.8 Phosphorus Magnesium Troponin I < 0.02 Albumin Total LDL Cholesterol HDL Cholesterol TSH Free T4 0.84 CT head 10/24/16: Mild volume loss and ventricular dilatation without gross evidence of acute intracranial pathology. Correlate clinically to determine further evaluation and follow-up. US carotid 10/25/16: Small plaques at the common carotid bifurcation/bulb, bilaterally without evidence of hemodynamically significant stenosis . CXR: 10/25/16 Right shoulder deformity. Weak inspiration. No acute chest pathology. Echo 10/26/16: Left ventricle normal size, normal function, no wall motion abnormalities. Trace Mitral regurgitation, moderate tricuspid regurgitation, Right ventricular systolic pressure 30-40, mild aortic sclerosis, mild aortic regurgitation MRI brain 10/26/16 MRI of the brain C- Multiple pulse sequences were completed utilizing the [employer] 1.5 T. What the [employer] MRI system. Sagittal, coronal: T1. Axial: T2, FLAIR, T2 gradient echo, diffusion-weighted. Coronal. T1 FLAIR. Findings. The intracranial contents are shown well from the phan magnum to the cranial vertex. The brain parenchyma displays normal signal intensity characteristics and architectural features throughout the entire cranial vault. Periventricular caps, bands attributable to breakdown of the ependymal lining, increase of extracellular fluid, and mild subependymal gliosis. Several T2, FLAIR hyperintensities are observed in the bilateral cerebral subcortical white matter , centrum semiovale on the basis of clinically silent microangiopathic ischemic changes, gliosis. There is no mass effect, midline shift, intra or extra axial collections. Normal corpus callosum is noted. The CSF spaces including the ventricles, cisterns sulci are age-appropriate. The major caliber vascular structures of the [place] of [place] and peripheral dural venous sinuses show normal flow-void signal characteristics. No abnormality seen in the pontomedullary junction region. No evidence of Chiari malformation No abnormalities are seen in sella, suprasellar region. Normal optic chiasm, pituitary infundibulum. The paranasal sinuses, middle ear, mastoid air cells are not opacified. Symmetrical ocular globes, optic nerves, extraocular muscles. Normal signal intensity of retro orbital fat. Status post cataract surgeries. The region of the CP angle cisterns appear normal. Normal signal intensity of the calvarium. Impression. No evidence of edema hemorrhage, acute ischemic changes seen on diffusion-weighted images. HOSPITAL COURSE: Date of Admission:10/25/16 This is a 81 year old woman with a past medical history of: Schizophrenia, Hypothyroidism, Borderline DM. Who presents to the emergency department from home with lightheadedness, syncope x [phone]. Patient's daughter reports her mom was found on the bathroom floor wedged between the tub and garbage bin. Per daughter patient was awake with slurred speech. Patient reports feeling lightheaded and weak. Patient reports being constipated for several days taking a laxative and her sleeping med around 8-9pm. She states" when I got up to go to the bathroom my legs felt weak." Patient denies headache, blurred vision or numbness, except for chronic numbness to her left foot. Patient denies fever, chills, SOB, CP, N/V/D, melena, hematuria, dysuria. ER course was notable for:(1) CT Brain- negative ICH, mass or lesion (2) EKG SB with T wave abnormality (3) Glucose 171 This is a 81 year old female with a PMH of Schizophrenia, Hypothyroidism, Prediabetes with constipation in recent days taking laxatives presents to the ED after being found in the bathroom floor awake, slurred speech, she states that she walk to the bathroom and her leg were weak. Pt is placed on observation in telemetry for syncope r/o orthostatic hypotension, arrhythmia, CVA/TIA Unwitnessed fall likely syncope r/o orthostatic, hypotension, arrhythmia, cardiac, CVA/TIA etiology Pt was on cardiac monitoring with no major events, CT head showed no acute disease, Echocardiogram done, US carotid showed no significant stenosis Troponins neg times 3, TSH 2.5, Neuro consult seen and examined pt, ordered MRI brain. MRI brain showed no acute disease. Pt passed swallow eval. Xray Hip/ pelvis showed no fracture, Xray right elbow showed no fracture. Pt will need to follow up with neurology Dr Salazar, as outpatient in 1-2 weeks Constipation Pt was placed on Colace 100mg PO TID, Pt has bowel movement today , will continue colace at home. Prediabetes HgbA1c 6, start diabetic diet, consider hypoglycemic agent with blood sugar check at home. Follow up with PCP to make that decision. Hypothyroidism TSh 2.5, continue synthroid 75mcg PO QD H/o Schizophrenia, resume seroquel, Outpatient psychiatry follow up Date of Discharge: 10/26/16 Minutes to complete discharge: 45 Discharge Summary Reason For Visit: SYNCOPE AND COLLAPSE Current Active Problems Syncope and collapse (Acute) Condition: Stable - Instructions Diet, Activity, Other Instructions: Discharge Home resume Home diet resume home activity Resume home medication Follow up with primary care physician within 1 week Follow with neurologist within 1-2 weeks If your start having lightheadedness, imbalance, confusion, numbness, tingling, weakness in arms or legs, slurred speech, blurred vision, double vision please return to the emergency department Referrals: STAFF,NOT ON [Primary Care Provider] - Lloyd Salazar MD [Staff Physician] - Disposition: HOME - Home Medications Comprehensive Discharge Medication List: Ambulatory Orders Levothyroxine [Synthroid -] 88 mcg PO DAILY 12/09/11 Docosahexanoic Acid/Epa [Fish Oil Softgel] 1 each PO DAILY 04/26/12 Gabapentin 400 mg PO HS 04/26/12 Ciprofloxacin [Cipro -] 500 mg PO BID 09/03/12 Tolterodine Tartrate [Detrol LA] 4 mg PO DAILY 09/03/12 Acetaminophen [Tylenol .Regular Strength -] 650 mg PO Q6H PRN #0 tablet Aspirin Coated [Ecotrin -] 325 mg PO DAILY #1 tab 09/05/12 Atorvastatin Ca [Lipitor] 10 mg PO HS #1 09/05/12 Docusate Sodium [Colace -] 300 mg PO HS #0 capsule 09/05/12 Magnesium Hydroxide [Milk of Magnesia -] 30 ml PO HS #0 ml 09/05/12 Multivits W-Fe,Other Min/Lut [Centrum Silver Ultra Women Tab] 1 each PO DAILY # 1 09/05/12 Zolpidem Tartrate [Ambien] 10 mg PO HS #1 09/05/12 Atorvastatin Ca [Lipitor] 10 mg PO HS 10/25/16 Docusate Sodium [Colace -] 100 mg PO TID #21 capsule 10/25/16 Gabapentin 400 mg PO ASDIR 10/25/16 Levothyroxine Sodium [Levo-T] 88 mcg PO DAILY 10/25/16 Quetiapine Fumarate [Seroquel -] 0 mg PO HS 10/25/16 This patient is new to me today: No Emergency Visit: Yes ED Registration Date: 10/25/16 Care time: The patient presented to the Emergency Department on the above date and was hospitalized for further evaluation of their emergent condition. Critical Care patient: No - Discharge Referral Referred to [facility] Med P.C.: No
[2016-10-26 15:33] VITALS: BP 136/53; PULSE 71; TEMP 98.6
--- NOTE | 2016-10-26 17:00 | PN ---
Teaching Attending Note Name of Resident: Brad Darden ATTENDING PHYSICIAN STATEMENT I saw and evaluated the patient. I reviewed the resident's note and discussed the case with the resident. I agree with the resident's findings and plan as documented. SUBJECTIVE: Patient is comfortable with no acute distress, had an MRI done with negative result. OBJECTIVE: Vital Signs Temperature 98.6 F 10/26/16 14:00 Pulse Rate 71 10/26/16 14:00 Respiratory Rate 18 10/26/16 14:00 Blood Pressure 136/53 10/26/16 14:00 O2 Sat by Pulse Oximetry (%) 97 10/26/16 10:00 GENERAL: Awake, alert, and fully oriented, in no acute distress. HEAD: Normal with no signs of trauma. EYES: Pupils equal, round and reactive to light, extraocular movements intact, sclera anicteric, conjunctiva clear. EARS, NOSE, THROAT: Ears normal, oropharynx clear without exudates. Dry mucous membranes. NECK: Normal range of motion, supple without lymphadenopathy, JVD, or masses. LUNGS: Breath sounds equal, clear to auscultation bilaterally. No wheezes, and no crackles. No accessory muscle use. HEART: Regular rate and rhythm, normal S1 and S2 without murmur, rub or gallop. ABDOMEN: Soft, nontender, not distended, normoactive bowel sounds, no guarding, no rebound, no masses. MUSCULOSKELETAL: Normal range of motion at all joints. No bony deformities or tenderness. No CVA tenderness. EXTREMITIES: 2+ pulses, warm, well-perfused. No calf tenderness. No peripheral edema. NEUROLOGICAL: Cranial nerves II-XII intact. Normal speech. Gait not observed, PSYCHIATRIC: Cooperative. Good eye contact. Appropriate mood and affect. SKIN: Warm, dry, normal turgor, no rashes or lesions noted. CBCD WBC 4.2 K/mm3 (4.0-10.0) D 10/26/16 08:45 RBC 4.18 M/mm3 (3.60-5.2) 10/26/16 08:45 Hgb 12.7 GM/dL (10.7-15.3) 10/26/16 08:45 Hct 37.6 % (32.4-45.2) 10/26/16 08:45 MCV 89.9 fl (80-96) 10/26/16 08:45 MCHC 33.7 g/dl (32.0-36.0) 10/26/16 08:45 RDW 13.3 % (11.6-15.6) 10/26/16 08:45 Plt Count 188 K/MM3 (134-434) 10/26/16 08:45 MPV 9.1 fl (7.5-11.1) 10/26/16 08:45 CMP Sodium 140 mmol/L (136-145) 10/26/16 08:45 Potassium 3.7 mmol/L (3.5-5.1) 10/26/16 08:45 Chloride 106 mmol/L (98-107) 10/26/16 08:45 Carbon Dioxide 29 mmol/L (21-32) 10/26/16 08:45 Anion Gap 5 (8-16) L 10/26/16 08:45 BUN 12 mg/dL (7-18) 10/26/16 08:45 Creatinine 0.9 mg/dL (0.55-1.02) 10/26/16 08:45 Creat Clearance w eGFR 47.91 (>60) 10/25/16 02:49 Random Glucose 88 mg/dL (74-106) D 10/26/16 08:45 Calcium 8.8 mg/dL (8.5-10.1) 10/26/16 08:45 Total Bilirubin 0.7 mg/dL (0.2-1.0) 10/25/16 02:49 AST 24 U/L (15-37) 10/25/16 02:49 ALT 24 U/L (12-78) 10/25/16 02:49 Alkaline Phosphatase 125 U/L (45-117) H 10/25/16 02:49 Total Protein 6.7 g/dl (6.4-8.2) 10/25/16 02:49 Albumin 3.8 g/dl (3.4-5.0) 10/25/16 02:49 CARDIAC ENZYMES Creatine Kinase 254 IU/L (26-192) H 10/25/16 02:49 Troponin I < 0.02 ng/ml (0.00-0.05) 10/25/16 17:20 Medication Instructions Recorded Levothyroxine [Synthroid -] 88 mcg PO DAILY 12/09/11 Docosahexanoic Acid/Epa [Fish Oil 1 each PO DAILY 04/26/12 Softgel] Gabapentin 400 mg PO HS 04/26/12 Tolterodine Tartrate [Detrol LA] 4 mg PO DAILY 09/03/12 Acetaminophen [Tylenol .Regular 650 mg PO Q6H PRN #0 tablet 09/05/12 Strength -] Aspirin Coated [Ecotrin -] 325 mg PO DAILY #1 tab 09/05/12 Atorvastatin Ca [Lipitor] 10 mg PO HS #1 09/05/12 Docusate Sodium [Colace -] 300 mg PO HS #0 capsule 09/05/12 Magnesium Hydroxide [Milk of 30 ml PO HS #0 ml 09/05/12 Magnesia -] Multivits W-Fe,Other Min/Lut 1 each PO DAILY #1 09/05/12 [Centrum Silver Ultra Women Tab] Zolpidem Tartrate [Ambien] 10 mg PO HS #1 09/05/12 Docusate Sodium [Colace -] 100 mg PO TID #21 capsule 10/25/16 Quetiapine Fumarate [Seroquel -] 0 mg PO HS 10/25/16 CT head 10/24/16: Mild volume loss and ventricular dilatation without gross evidence of acute intracranial pathology. Correlate clinically to determine further evaluation and follow-up. US carotid 10/25/16: Small plaques at the common carotid bifurcation/bulb, bilaterally without evidence of hemodynamically significant stenosis . CXR: 10/25/16 Right shoulder deformity. Weak inspiration. No acute chest pathology. Echo 10/26/16: Left ventricle normal size, normal function, no wall motion abnormalities. Trace Mitral regurgitation, moderate tricuspid regurgitation, Right ventricular systolic pressure 30-40, mild aortic sclerosis, mild aortic regurgitation MRI brain 10/26/16 : negative ASSESSMENT AND PLAN: This is a 81 year old woman with a PMHx of: Schizophrenia, Hypothyroidism, Border-line DM. Who presents to the ED with Lightheadedness without LOC as per patient. # acute lightheadedness due to laxative use (Dulcolax) , seen By neuro , ordered MRI with negative result. Echo result as above MR,moderate TR, EJF around 81%, Carotid Doppler as above the result. with neg. Trop discussed with Neurologist, anatolyay to send patient home on aspirin. # Border-line DM , HgbA1c 6.0 , diabetic diet control , possible due to seroquel # bruising of the right elbow and right hip xray or right elbow and right hip ordered no fx Code Status: Patient is a Full Code Echo negative; MRI negative
[2016-10-26] MEDS ORDERED: PT OWN MED DRAWER 7, Y5N ONE (17:18)
== END 2016-10-26 18:25 | disposition home or self-care (01) ==
LOC: JER 02:10 → UNDOADMOB 05:12 → JERBED 05:12 → INTOOBSV 05:12 → MERGE 15:53 → JERBED 15:53 → J4S 10-26 00:21
PROVIDERS: ADMIT Internal Medicine; ATTEND Internal Medicine
DX: R55 Syncope and collapse (principal); E03.9 Hypothyroidism, unspecified; F20.9 Schizophrenia, unspecified; K59.00 Constipation, unspecified
CPT/HCPCS: 36415; 70450-TC; 70551-TC; 71010-TC; 73070-TC-RT; 73523-TC; 80048; 80053; 81003; 81015; 82465; 82550; 82553; 83036; 83718; 83721; 83735; 84100; 84439; 84443; 84478; 84484; 85025; 85610; 86850; 86900; 86901; 90670; 93005; 93010; 93306-TC; 93880-TC; 97116-GP; 97163-GP; 99285-25; G0009; G0378; Q2037